=== PATIENT | female | born 1985 | race Caucasian/White ===

== ENCOUNTER 2018-08-28 05:50 | Inpatient (IN) ==
--- NOTE | 2018-08-27 10:32 | History & Physical Report ---
Date of Service August 27, 2018 Patient is 39+ weeks and breech presentation wishes has generally been uncomplicated she did have a low-lying placenta but the location resolved at 32 weeks. Normal second trimester ultrasound normal lab first Assessment & Plan (1) Breech presentation: Reviewed breech presentation. Patient does not wish version. Recommended patient agrees discussed risks including bleeding infection injury to bowel bladder ureter vessels deep vein thrombosis pulmonary embolus full informed consent discussed risks to the fetus as well discussed risks of vaginal plan for low segment transverse section History of Present Illness Primary Care Provider: Bev Pan MD Allergies Allergy/AdvReac Type Severity Reaction Status Date / Time No Known Allergies Allergy Verified 08/25/18 08:05 Home Medications Home Medications Medication Instructions Recorded Confirmed Type 1 dose PO DAILY 08/25/18 08/25/18 History Probiotic 1 cap PO DAILY 08/25/18 08/25/18 History albuterol sulfate 1 puff INHALATION Q6H PRN 08/25/18 08/25/18 History Patient History Medical History Asthma Uses PRN INH 1-2 x month on avg History of strain of back Chiropractor visits monthly Seasonal allergies Surgical History History of appendectomy History of wisdom tooth extraction Social History Preferred Language: Austrian Communication Ability: Effective Wellness Manager Required: No Beliefs That Will Affect Care: None Current Living Situation: Spouse Other Information That Helps Us Care for You: No Feels Safe at Home: Yes Safety Concerns: Feels Safe At This Time Smoking Status: Never smoker Do You Dip or Chew Tobacco: No Second Hand Exposure: No Hx Alcohol Use: Yes Hx Substance Use: No Physical Exam Constitutional: WD/WN, vitals as above Respiratory: normal respiratory effort, lungs clear to auscultation Cardiovascular: RRR, no murmur, no edema Genitourinary: OB Exam Abdomen: + fundal height (38) and + breech OB Exam Monitor Tracing: + external FHT monitor used
--- NOTE | 2018-08-27 10:50 | Anesthesiology Consultation ---
Date of Service August 27, 2018 Assessment & Plan (1) Encounter for pre-operative examination: Chart Review Chart Review: Acceptable Risk for Surgery and Patient seen in Pre Admission Testing Teaching & Discussion Instructed NPO after midnight before surgery, except medications with 15 cc of water. Medication instructions provided according to the PAT guidelines. History Surgery Operation Date: 08/28/18 07:30 Proposed Procedures p Section in LD - J. Goran Taylor MD, FACOG Height/Weight Height: 5 ft 9 in Weight: 90.2 kg Allergies Allergy/AdvReac Type Severity Reaction Status Date / Time No Known Allergies Allergy Verified 08/25/18 08:05 Medications Home Medications Medication Instructions Recorded Confirmed Last Taken 1 dose PO DAILY 08/25/18 08/25/18 Unknown Probiotic 1 cap PO DAILY 08/25/18 08/25/18 Unknown albuterol sulfate 1 puff INHALATION Q6H PRN 08/25/18 08/25/18 Unknown Past Medical History Medical History Asthma Uses PRN INH 1-2 x month on avg History of strain of back Chiropractor visits monthly Seasonal allergies Exercise / Class Metabolic Activity II 4-5 Yardwork/Stairs/Walk up hill Past Family History Family History Uncle Family history of diabetes mellitus Uncle Family history of esophageal cancer Grandmother Family history of diverticulitis of colon Past Surgical History Surgical History History of appendectomy History of wisdom tooth extraction Past Anesthesia History No Hx of Anesthesia Complications and No Family Hx of Anesthesia Complications History of PONV No Hx of PONV and No Hx of Motion Sickness Social History Smoking Status: Never smoker Do You Dip or Chew Tobacco: No Hx Alcohol Use: Yes alcohol intake frequency: holidays/special occasions only Alcohol Intake Frequency Comment: no alcohol while Hx Substance Use: No substance use type: does not use Review of Systems Pt denies any recent chest pain, shortness of breath, palpitations, cough, fever or URI. Physical Exam Vital Signs BP: 94/63 (pt reports this is baseline) P: 97bpm SPO2: 96% RA T: 98.3 R: 16 ENMT Mouth: + dental restorations (one front upper incisor capped); no chipped teeth and no loose teeth Thyromental Distance: > or= 3.5 Finger Breadths (4) Mallampati Class: I Neck normal visual inspection; neck extension not limited Respiratory normal respiratory effort Auscultation: lungs clear to auscultation bilaterally Cardiovascular Rate/Rhythm: regular rate and regular rhythm Heart Sounds: no murmur
--- NOTE | 2018-08-27 11:07 | PAT Medication Instructions ---
Medication Instructions Date of Service August 27, 2018 Home Medications 1 dose PO DAILY Probiotic 1 cap PO DAILY albuterol sulfate 1 puff INHALATION Q6H PRN DO NOT take the morning of surgery 1 dose PO DAILY Probiotic 1 cap PO DAILY Take morning of surgery OTHERWISE NOTHING TO EAT OR DRINK AFTER MIDNIGHT: albuterol sulfate 1 puff INHALATION Q6H PRN (if needed, and bring with you to the hospital) Other Notes If you have any questions please call us at [phone] or [phone] or [phone] or [phone]
[~2018-08-28 05:50] MED LIST: LACTATED RINGER'S 1,000 ML IV SCH
[2018-08-28] MEDS ORDERED: LR 15ML/HR IV SCH (06:00)
[2018-08-28] MEDS ORDERED: CEFAZOLIN 2000MG 2,000 MG/15 ML SYR IV SCH ×2 (06:00)
[2018-08-28] MEDS ORDERED: CITRIC ACID/SODIUM CITRATE 15 ML UDC PO SCH ×2 (06:00)
[2018-08-28] MEDS ORDERED: LACTATED RINGER'S 1,000 ML IV SCH ×3 (06:00→08:45)
[2018-08-28 06:26] LABS: Basophils # (auto) 0.01 K/uL (0-0.2); Basophils % (auto) 0.1 %; Eosinophils # (auto) 0.13 K/uL (0-0.5); Eosinophils % (auto) 1.3 %; Hematocrit (blood only) 36.4 % (37-47); Hemoglobin 12.7 g/dL (12.0-16.0); Immature Granulocytes # (auto) 0.04 K/uL (0.00-0.02); Immature Granulocytes % (auto) 0.4 %; Lymphocytes % (auto) 22.3 %; Mean Corpuscular Volume 89.4 fL (80-100); Mean Platelet Volume 10.4 fL (7.4-10.4); Monocytes # (auto) 1.02 K/uL (0.11-0.59); Monocytes % (auto) 9.9 %; Platelet Count 220 K/uL (130-400); RDW Coefficient of Variation 12.8 % (11.5-14.5); RDW Standard Deviation 41.3 fL (36.4-46.3); Red Blood Count 4.07 M/uL (4.2-5.4)
[2018-08-28 06:34] LABS: Mean Corpuscular Hgb Conc 34.9 g/dL (32-36)
[2018-08-28] MEDS ORDERED: OXYTOCIN 10 UNITS/ML VIAL ONE (06:58)
[2018-08-28] MEDS ORDERED: fentaNYL citrate 100 MCG/2 ML VIAL ONE (06:58)
[2018-08-28] MEDS ORDERED: MoRPHine SULFATE PF 1 MG/ML 10 ML AMP/VIAL ONE (06:58)
--- NOTE | 2018-08-28 07:14 | History & Physical Bridge Note ---
Date of Service August 28, 2018 History & Physical Bridge Note I have examined the patient, reviewed the History & Physical and in the interval since the performance of the History & Physical I have noted the following changes of clinical significance: no changes noted
[2018-08-28] MEDS ORDERED: ONDANSETRON INJ 2 MG/ML 2 ML VIAL IV PRN (08:08)
[2018-08-28] MEDS ORDERED: MEPERIDINE HCL 25 MG/ML CARP IV PRN (08:08)
[2018-08-28] MEDS ORDERED: NALOXONE HCL 0.08 MG in SYRINGE 1.8 ML IV PRN (08:08)
[2018-08-28] MEDS ORDERED: LACTATED RINGER'S 500 ML IV PRN (08:08)
[2018-08-28] MEDS ORDERED: ePHEDrine sulfate 50 MG/ML AMP IV PRN (08:08)
[2018-08-28] MEDS ORDERED: NALOXONE HCL 0.4 MG/1 ML VIAL/CARP IV PRN (08:08)
[2018-08-28] MEDS ORDERED: DiphenhydrAMINE HCL 50 MG/ML VIAL IV PRN (08:08)
[2018-08-28] MEDS ORDERED: NALBUPHINE HCL INJ 10 MG/ML AMP IV PRN (08:08)
[2018-08-28] MEDS ORDERED: MoRPHine SULFATE PF 1 MG/ML 10 ML AMP/VIAL INT SPINAL ONE (08:08)
[2018-08-28] MEDS ORDERED: NALOXONE HCL 1 MG in SODIUM CHLORIDE 0.9% 1000ML 1,000 ML IV PRN (08:08)
[2018-08-28] MEDS ORDERED: SODIUM CHLORIDE 0.9% 1000ML 1,000 ML IV SCH (08:15)
[2018-08-28] MEDS ORDERED: NO NARCOTICS OR SEDATIVES SCH (08:15)
[2018-08-28 08:34] LABS: Base Excess Cord Arterial Bld 5.3 mEq/L (-9-1.8); CO2 Cord Arterial Blood 61 mmHg (39.1-73.5); HCO3 Cord Arterial Blood 33 mmol/L (19.7-28.5); pH Cord Arterial Blood 7.35 (7.1-7.38)
--- NOTE | 2018-08-28 08:35 | Operative Report ---
Post Operative Report Pre & Post Diagnosis Operation Date: 08/28/18 07:30 <No data on this case meets the specified criteria> Breech presentation at term is preop and postop diagnosis Procedure Operation Date: 08/28/18 07:30 <No data on this case meets the specified criteria> Low segment transverse section Surgeon Oleg Taylor MD, FACOG [facility] Estimated Blood Loss 600 Findings Consistent with Post-Op Diagnosis Specimens Placenta cord gases cord blood Description of Procedure Patient given a spinal anesthetic prepped and draped in supine position with a leftward tilt Holloway catheter been placed by nursing IV Ancef had been given prior prophylactic antibiotics skin area was tested with pickups with teeth and found to be adequate Pfannenstiel incision with scalpel dissecting down through subtenons fat through fascia in the midline fascia dissected laterally with the curved Nicolas scissors fascia then released superiorly and inferiorly with the curved Mayos away from the rectus muscles rectus muscle split peritoneal cavity entered bluntly in a superior location. Opening of the peritoneal cavity then expanded to allow exposure bladder retractor placed Metzenbaums used to dissect away the bladder flap bladder retractor repositioned scalpel used to make a low transverse incision and she was done bluntly with a hemostat and then uterine hysterotomy incision expanded with the photocomposition keyboard operator's fingers Baby was jen breech delivered by flexion of the baby's buttocks we then converted the baby's back to anterior gentle traction I was able to release both legs and then both arms were swept towards the chest to allow easy delivery baby's head was delivered with gentle traction no excessive force and no excessive extension live vigorous cord clamped and cut cord gases obtained cord itself appeared somewhat thickened but otherwise normal placenta was removed manually uterus was exteriorized IV Pitocin was started. The uterus was normal it was not bicornuate there was no septum adnexa were normal Hemostasis improved uterus closed in the usual fashion a 2 layer 0 Monocryl closure first layer locked second layer not locked. After this we irrigated and suctioned the pelvis and bladder flap areas uterus placed back in the peritoneal cavity hemostasis was excellent Fascia was closed with 0 Vicryl subcutaneous fat was irrigated and closed with 3-0 Vicryl 4-0 subcuticular Monocryl closure Steri-Strips applied sponge and instrument counts were correct and urine was clear I attest to the content of the Intraoperative Record and any orders documented therein. Any exceptions are noted below.
[2018-08-28] MEDS ORDERED: HYDROCORTISONE ACETATE 25 MG SUPP PR PRN (08:36)
[2018-08-28] MEDS ORDERED: SUPERCREAM 0.870% 15 GM JAR EXT PRN (08:36)
[2018-08-28] MEDS ORDERED: MAGNESIUM HYDROXIDE SUSP 30 ML UDC PO PRN (08:36)
[2018-08-28] MEDS ORDERED: BENZOCAINE 20% AER SPR 82.5 GM CAN EXT PRN (08:36)
[2018-08-28] MEDS ORDERED: SENNA 8.6 MG TAB PO PRN (08:36)
[2018-08-28] MEDS ORDERED: DIPHTHERIA/TETANUS/PERTUSSIS 0.5 ML SYR/VIAL IM ONE (08:36)
[2018-08-28 08:42] LABS: Cord Venous Blood HCO3 25 mmol/L (18.4-26.8); Cord Venous Blood PCO2 44 mmHg (30.4-57.2); Cord Venous Blood PO2 29 mmHg (14.1-43.3); Cord Venous Blood pH 7.38 (7.20-7.44); O2 Saturation Cord Venous Bld 65.1 % (<68)
--- NOTE | 2018-08-28 09:16 | Anesthesiology Progress Note ---
Date of Service August 28, 2018 Anesthesia Post Procedure Vital Signs Vital Signs: Temp Pulse Resp BP Pulse Ox 08/28/18 09:13 74 97 08/28/18 09:10 74 92/58 L 08/28/18 09:08 76 97 08/28/18 09:05 68 96/53 L 08/28/18 09:03 81 97 08/28/18 08:58 91 H 98 08/28/18 08:53 75 98 08/28/18 08:50 98 H 94 08/28/18 08:48 88 96 08/28/18 08:43 82 96 08/28/18 08:39 86 91/55 L 08/28/18 08:38 82 96 08/28/18 07:08 97.9 F 64 18 125/79 08/28/18 06:02 98.2 F 20 Transfer of Care Handoff Completed per policy Notes Mental Status: alert / awake / arousable and participated in evaluation Nausea / Vomiting: adequately controlled Pain: adequately controlled Airway Patency, RR, SpO2: stable & adequate BP & HR: stable & adequate Hydration State: stable & adequate Neuraxial Anesthesia: was administered and sensory block is resolving Anesthetic Complications: no major complications apparent and Pt Satisfied with anesthetic care
[2018-08-28] MEDS: DOCUSATE SODIUM 100 MG CAP PO SCH ×2 (10:22→20:28)
[2018-08-28] MEDS: PRENATAL VITAMIN 1 TAB PO SCH (10:23)
[2018-08-28] MEDS: SIMETHICONE 80 MG CHEW PO SCH ×4 (10:23→20:28)
[2018-08-28] MEDS: OXYTOCIN 20 UNITS in LACTATED RINGER'S 1,000 ML IV SCH ×2 (10:49→18:36)
[2018-08-28] MEDS ORDERED: ALBUTEROL HFA 8 GM INHALER INH PRN (12:26)
[2018-08-28] MEDS: KETOROLAC 30 MG/ML VIAL IV PRN (13:15)
[2018-08-29] MEDS: KETOROLAC 30 MG/ML VIAL IV PRN (00:49)
[2018-08-29] MEDS ORDERED: ONDANSETRON INJ 2 MG/ML 2 ML VIAL IV PRN (02:08)
[2018-08-29] MEDS ORDERED: ZOLPIDEM TARTRATE 5 MG TAB PO PRN (02:08)
[2018-08-29] MEDS ORDERED: PROMETHAZINE HCL 25 MG in SODIUM CHLORIDE 0.9% 50 ML IV PRN (02:08)
[2018-08-29] MEDS ORDERED: DC INTRASPINAL MORPHINE ONE (02:08)
[2018-08-29] MEDS ORDERED: MEPERIDINE HCL 50 MG/ML CARP IV PRN (02:08)
[2018-08-29] MEDS ORDERED: OXYCODONE/ACETAMINOPHEN 5mg/325mg TAB PO PRN (02:08)
[2018-08-29] MEDS ORDERED: DiphenhydrAMINE HCL 50 MG/ML VIAL IV PRN (02:08)
[2018-08-29] MEDS ORDERED: KETOROLAC 30 MG/ML VIAL IV PRN (02:08)
--- NOTE | 2018-08-29 07:32 | Obstetrical Progress Note ---
Date of Service August 29, 2018 section postop day #1 patient doing well pain well controlled tolerating oral diet no excessive bleeding Assessment & Plan (1) Breech presentation: Postop day #1 from encourage ambulation Physical Exam Vital Signs (Past 24 Hours) Last Vital Signs Temp 98.1 F 08/29/18 03:50 Pulse 74 08/29/18 03:50 Resp 18 08/29/18 03:50 BP 93/60 L 08/29/18 03:50 Pulse Ox 98 08/29/18 02:05 Constitutional WD/WN, vitals as above Respiratory normal respiratory effort, lungs clear to auscultation Cardiovascular RRR, no murmur, no edema Genitourinary Uterus firm nontender extremity exam negative incision clean dry and intact
[2018-08-29 07:53] LABS: Basophils # (auto) 0.02 K/uL (0-0.2); Basophils % (auto) 0.2 %; Eosinophils # (auto) 0.07 K/uL (0-0.5); Eosinophils % (auto) 0.6 %; Hematocrit (blood only) 31.7 % (37-47); Hemoglobin 10.8 g/dL (12.0-16.0); Immature Granulocytes # (auto) 0.04 K/uL (0.00-0.02); Immature Granulocytes % (auto) 0.4 %; Lymphocytes # (auto) 1.14 K/uL (1.2-3.4); Lymphocytes % (auto) 10.3 %; Mean Corpuscular Hgb Conc 34.1 g/dL (32-36); Mean Corpuscular Volume 92.7 fL (80-100); Mean Platelet Volume 10.5 fL (7.4-10.4); Monocytes # (auto) 1.02 K/uL (0.11-0.59); Monocytes % (auto) 9.2 %; Neutrophils # (auto) 8.77 K/uL (1.4-6.5); Neutrophils % (auto) 79.3 %; Platelet Count 163 K/uL (130-400); RDW Coefficient of Variation 13.2 % (11.5-14.5); RDW Standard Deviation 43.9 fL (36.4-46.3); Red Blood Count 3.42 M/uL (4.2-5.4); White Blood Count 11.06 K/uL (4.8-10.8)
--- NOTE | 2018-08-29 08:07 | Anesthesiology Progress Note ---
Date of Service August 29, 2018 Anesthesia Post Procedure Vital Signs Vital Signs: Temp Pulse Pulse Pulse Resp BP BP 08/29/18 07:33 36.6 C 76 20 93/62 L 08/29/18 03:50 36.7 C 74 18 93/60 L 08/29/18 02:05 18 08/29/18 01:30 18 08/29/18 00:48 18 08/28/18 23:05 36.8 C 61 18 99/66 L 08/28/18 22:00 18 08/28/18 21:15 18 08/28/18 20:28 18 08/28/18 19:50 36.9 C 76 18 102/66 08/28/18 19:00 18 08/28/18 18:00 18 08/28/18 17:00 18 08/28/18 16:00 36.6 C 87 18 109/70 08/28/18 15:00 18 08/28/18 14:00 18 08/28/18 13:48 81 17 101/62 08/28/18 13:15 18 08/28/18 12:44 87 16 109/70 08/28/18 12:15 18 08/28/18 11:45 78 18 112/76 08/28/18 11:15 37 C 76 18 99/62 L 08/28/18 10:53 83 08/28/18 10:50 75 109/63 08/28/18 10:48 79 08/28/18 10:43 77 08/28/18 10:40 36.7 C 85 18 118/67 08/28/18 10:38 77 08/28/18 10:33 77 08/28/18 10:30 70 108/59 L 08/28/18 10:28 68 08/28/18 10:23 71 08/28/18 10:20 78 102/57 L 08/28/18 10:18 70 08/28/18 10:13 74 08/28/18 10:11 65 92/52 L 08/28/18 10:08 73 18 180/127 H 08/28/18 10:03 79 08/28/18 09:58 72 08/28/18 09:54 71 117/58 L 08/28/18 09:53 71 08/28/18 09:52 88 18 182/123 H 08/28/18 09:48 72 05/17/19 09:43 76 08/28/18 09:40 36.4 C L 18 08/28/18 09:38 76 08/28/18 09:33 91 H 08/28/18 09:32 81 109/74 08/28/18 09:30 18 08/28/18 09:28 82 08/28/18 09:23 69 08/28/18 09:21 54 L 93/55 L 08/28/18 09:20 18 08/28/18 09:18 95 H 08/28/18 09:13 74 08/28/18 09:10 74 92/58 L 08/28/18 09:08 76 08/28/18 09:05 68 96/53 L 08/28/18 09:03 81 08/28/18 09:00 18 08/28/18 08:58 91 H 08/28/18 08:53 75 08/28/18 08:50 98 H 08/28/18 08:48 88 18 08/28/18 08:43 82 08/28/18 08:39 36.4 C L 86 18 91/55 L 08/28/18 08:38 82 Pulse Ox 08/29/18 07:33 08/29/18 03:50 08/29/18 02:05 98 08/29/18 01:30 97 08/29/18 00:48 98 08/28/18 23:05 97 08/28/18 22:00 100 08/28/18 21:15 100 08/28/18 20:28 98 08/28/18 19:50 98 08/28/18 19:00 97 08/28/18 18:00 98 08/28/18 17:00 98 08/28/18 16:00 96 08/28/18 15:00 98 08/28/18 14:00 97 08/28/18 13:48 97 08/28/18 13:15 97 08/28/18 12:44 96 08/28/18 12:15 97 08/28/18 11:45 98 08/28/18 11:15 98 08/28/18 10:53 96 08/28/18 10:50 08/28/18 10:48 97 08/28/18 10:43 98 08/28/18 10:40 08/28/18 10:38 99 08/28/18 10:33 97 08/28/18 10:30 08/28/18 10:28 98 08/28/18 10:23 98 08/28/18 10:20 08/28/18 10:18 98 08/28/18 10:13 97 08/28/18 10:11 08/28/18 10:08 98 08/28/18 10:03 96 08/28/18 09:58 97 08/28/18 09:54 08/28/18 09:53 97 08/28/18 09:52 08/28/18 09:48 97 08/28/18 09:43 96 08/28/18 09:40 08/28/18 09:38 96 08/28/18 09:33 96 08/28/18 09:32 08/28/18 09:30 08/28/18 09:28 96 08/28/18 09:23 97 08/28/18 09:21 08/28/18 09:20 08/28/18 09:18 96 08/28/18 09:13 97 08/28/18 09:10 08/28/18 09:08 97 08/28/18 09:05 08/28/18 09:03 97 08/28/18 09:00 08/28/18 08:58 98 08/28/18 08:53 98 08/28/18 08:50 94 08/28/18 08:48 96 08/28/18 08:43 96 08/28/18 08:39 08/28/18 08:38 96 Pain Intensity Lower Abdomen: Pain Intensity: 2 Transfer of Care Handoff Completed per policy Notes Mental Status: alert / awake / arousable Patient Amnestic to Procedure: Yes Nausea / Vomiting: adequately controlled Pain: adequately controlled Airway Patency, RR, SpO2: stable & adequate BP & HR: stable & adequate Neuraxial Anesthesia: was administered and sensory block is resolving Anesthetic Complications: no major complications apparent Notes: Pt doing well. Has been OOB. Denies having any SANDERS, paresthesia, backache. VSS
[2018-08-29] MEDS: DOCUSATE SODIUM 100 MG CAP PO SCH ×2 (09:14→22:12)
[2018-08-29] MEDS: SACCHAROMYCES BOULARDII 250 MG CAP PO SCH (09:14)
[2018-08-29] MEDS: SIMETHICONE 80 MG CHEW PO SCH ×4 (09:14→22:12)
[2018-08-29] MEDS: IBUPROFEN 600 MG TAB PO PRN ×4 (09:14→22:27)
[2018-08-29] MEDS: PRENATAL VITAMIN 1 TAB PO SCH (09:14)
[2018-08-29] MEDS ORDERED: BISACODYL 5 MG TABEC PO SCH (20:00)
[2018-08-29] MEDS ORDERED: BISACODYL 5 MG TABEC PO ONE (22:24)
[2018-08-30 06:24] LABS: Hematocrit (blood only) 33.1 % (37-47); Hemoglobin 11.3 g/dL (12.0-16.0)
--- NOTE | 2018-08-30 08:14 | Obstetrical Progress Note ---
Date of Service August 30, 2018 Assessment & Plan (1) delivery delivered: Patient doing well. Unsure about d/c today. Wants to see how feeding is going. routine pp care. Subjective Ambulation: ambulating normally Voiding: no voiding problems Passing Gas:: Yes Diet Tolerance:: regular diet Lochia:: Small Feeding Type:: breast feeding Patient struggling with breast feeding. Notes her incision is sore, not taking any narcotics. Physical Exam Vital Signs (Past 24 Hours) Last Vital Signs Temp 98.1 F 08/29/18 23:21 Pulse 72 08/29/18 23:21 Resp 18 08/29/18 23:21 BP 108/71 08/29/18 23:21 Pulse Ox 100 08/29/18 23:21 Constitutional WD/WN, vitals as above Cardiovascular Extremities: no calf tenderness and no edema Gastrointestinal (Abdomen) soft, nd, nt incision--c/d/i, small amount of bruising fundus firm, appropriately tender
[2018-08-30] MEDS ORDERED: BISACODYL 10 MG SUPP PR PRN (08:37)
[2018-08-30] MEDS: PRENATAL VITAMIN 1 TAB PO SCH (09:24)
[2018-08-30] MEDS: DOCUSATE SODIUM 100 MG CAP PO SCH ×2 (09:24→21:28)
[2018-08-30] MEDS: SIMETHICONE 80 MG CHEW PO SCH ×4 (09:24→21:27)
[2018-08-30] MEDS: IBUPROFEN 600 MG TAB PO PRN ×3 (09:24→21:28)
[2018-08-30] MEDS: SACCHAROMYCES BOULARDII 250 MG CAP PO SCH (09:24)
[2018-08-30] MEDS ORDERED: BISACODYL 5 MG TABEC PO ONE (21:16)
--- NOTE | 2018-08-31 07:14 | Obstetrical Progress Note ---
Date of Service <Choco Mcfarland MD - Last Filed: 08/31/18 07:18> August 31, 2018 Assessment & Plan <Choco Mcfarland MD - Last Filed: 08/31/18 07:18> (1) delivery delivered: day 3 s/p for breech presentation at 39Weeks and 5 days Vital Signs Reviewed and WNL Hemoglobin 11.3 Blood type A+, GBS - Rubella Immune Patient doing very well clinically, eating, walking and using restroom, had bowel movement with some mild constipation improved with stool softeners Encouraged ambulation as tolerated, continuing with breast feeding Counselled patient on all discharge instructions and follow up appointment Day #:: 3 Subjective <Choco Mcfarland MD - Last Filed: 08/31/18 07:18> Ambulation: ambulating normally Voiding: no voiding problems Passing Gas:: Yes Diet Tolerance:: regular diet Lochia:: Small Feeding Type:: breast feeding (Having to supplement with formula) Mild pain when moving well controlled with motrin Physical Exam <Choco Mcfarland MD - Last Filed: 08/31/18 07:18> Vital Signs (Past 24 Hours) Last Vital Signs Temp 36.6 C 08/30/18 23:10 Pulse 71 08/30/18 23:10 Resp 16 08/30/18 23:10 BP 108/74 08/30/18 23:10 Pulse Ox 98 08/30/18 23:10 Constitutional well developed, well nourished, cooperative and comfortable Respiratory normal respiratory effort, lungs clear to auscultation Cardiovascular Rate/Rhythm: regular rate and regular rhythm Heart Sounds: no click, no gallop, no murmur and no cardiac rub Extremities: no calf tenderness Genitourinary OB Exam Abdomen: + fundal height (2 cm below umbilicus) Fundus: + firm; not tender <Jessenia Tilley MD, FACOG - Last Filed: 08/31/18 07:44> Co-Signing Physician Notes Resident Physician Supervision Note: I interviewed and examined the patient. Discussed with Dr. Mcfarland and agree with findings and plan as documented in the note. Any exceptions or cla rifications are listed here: Agree. Doing well. Plan d/c. Documented By: Jessenia Tilley MD, FACOG Resident Activity Tracking <Choco Mcfarland MD - Last Filed: 08/31/18 07:18> Resident Involvement: Resident Care Provided Care Provided: Adult Hospital Medicine
[2018-08-31] MEDS: PRENATAL VITAMIN 1 TAB PO SCH (09:06)
[2018-08-31] MEDS: DOCUSATE SODIUM 100 MG CAP PO SCH (09:06)
[2018-08-31] MEDS: SACCHAROMYCES BOULARDII 250 MG CAP PO SCH (09:07)
[2018-08-31] MEDS: SIMETHICONE 80 MG CHEW PO SCH (09:07)
[2018-08-31] MEDS: IBUPROFEN 600 MG TAB PO PRN (09:07)
[2018-08-31 09:57] VITALS: BP 106/66; PULSE 74; TEMP 98.1; O2SAT 100
--- NOTE | 2018-09-03 10:14 | Discharge Summary ---
Date of Service September 03, 2018 Patient had a C/S for breech presentation and met criteria for discharge on POD#3 Ambulating well. Pain well controlled. Min bleeding, no ext pain Admission Exam (Per Admitting) Constitutional WD/WN, vitals as above Respiratory normal respiratory effort, lungs clear to auscultation Cardiovascular RRR, no murmur, no edema Genitourinary Incision clean dry and intact Discharge Data Consultations 08/28/18 05:53 Consult Anesthesiology Stat Procedures Performed Operation Date: 08/28/18 07:30 Actual Procedures p Section in LD(Bilateral) - [facility] ([facility]) Breech presentation:
== END 2018-08-31 13:25 | disposition home or self-care (01) | DRG 788 ==
LOC: 4S1 05:50 → EDSTATUS 07:30 → 4S2 11:10

== ENCOUNTER 2022-08-16 05:38 | Inpatient (IN) ==
--- NOTE | 2022-08-07 14:10 | Anesthesiology Consultation ---
Date of Service August 07, 2022 Assessment & Plan (1) Encounter for pre-operative examination: Chart Review Chart Review: data entry clerk initiated -COVID screening: Per PAT nursing assessment on 08/07/22. No known COVID-19 posi tive contacts or current COVID-19 related symptoms. Travel screen negative. Patient vaccinated for Covid. At surgeon discretion if preop Covid testing being done. D&E 02/02/21= Done under GA with LMA #4, atraumatic placement 08/28/18= Done under SAB at L4-5 with 1 attempt History Surgery Operation Date: 08/16/22 07:30 Proposed Procedures p Section in LD (Delivery of Baby Through Abdominal Incision) - Sharri Pritchett MD, FACOG Height/Weight Height: 5 ft 10 in Weight: 90.083 kg Allergies Allergy/AdvReac Type Severity Reaction Status Date / Time No Known Allergies Allergy Verified 08/05/22 11:43 Medications Home Medications Medication Instructions Recorded Confirmed Last Taken prenat.vits,ken,[id number] 1 tab PO QAM 12/11/20 08/07/22 01/31/21 albuterol sulfate 90 mcg/actuation 1 puff inhalation Q6H PRN 02/21/21 08/07/22 Unknown aerosol inhaler Shortness Of Breath breast pump #1 ea 06/27/22 08/05/22 Unknown Past Medical History Medical History Breech presentation 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 has had no issues in about 1 yr- prn inhaler use History of chicken pox Seasonal allergies Sudden right hearing loss Tinnitus of right ear Past Family History Family History Uncle Family history of diabetes mellitus Uncle Family history of esophageal cancer Grandmother Family history of diverticulitis of colon Other No family history of adverse response to anesthesia Denies family history of Ovarian cancer Breast cancer Colorectal cancer Past Surgical History Surgical History History of appendectomy History of wisdom tooth extraction Hx of dilation and curettage D&E after miscarriage S/P section X 1 S/P LASIK surgery PRK X 2 Social History Smoking Status: Never smoker Do You Dip or Chew Tobacco: No Hx Alcohol Use: No alcohol intake frequency: holidays/special occasions only Hx Substance Use: No substance use type: does not use
--- NOTE | 2022-08-15 12:46 | History & Physical Report ---
Date of Service August 15, 2022 Assessment & Plan (1) Previous delivery affecting , antepartum: Plan IUP at 39 weeks presents for repeat LTCS procedure and risks reviewed with patient and her . all questions answered to their satisfaction. History of Present Illness Primary Care Provider: Bev Pan MD Patient is a 37 yo female EDC 08/20/22 who presents at 39 weeks for repeat LTCS. first LTCS done for breech presentation. this complicated by AMA status. testing has been reassuring. 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 has had no issues in about 1 yr- prn inhaler use History of chicken pox Seasonal allergies Sudden right hearing loss Tinnitus of right ear Surgical History History of appendectomy History of wisdom tooth extraction Hx of dilation and curettage D&E after miscarriage S/P section X 1 S/P LASIK surgery PRK X 2 Family History Uncle Family history of diabetes mellitus Uncle Family history of esophageal cancer Grandmother Family history of diverticulitis of colon Other No family history of adverse response to anesthesia Denies family history of Ovarian cancer Breast cancer Colorectal cancer Social History Smoking Status: Never smoker Second Hand Exposure: No; Do You Dip or Chew Tobacco: No; Hx Alcohol Use: No Hx Substance Use: No Preferred Language: Maldivian Communication Ability: Effective Visual Impairment: No Limitations Hearing Ability: Normal Insurance Instructor Required: No Beliefs That Will Affect Care: None marital status: marital status details: Rey Beltran (36) [phone] Current Living Situation: Family Current Living Situation Comment: lives with spouse, son, dog current occupational status: employed current occupation: Nurse [employer] Feels Safe at Home: Yes Assistive Devices: Contacts and Glasses Review of Systems All systems reviewed & are unremarkable except as noted in HPI & below Physical Exam Constitutional: WD/WN, vitals as above Respiratory: normal respiratory effort, lungs clear to auscultation Cardiovascular: RRR, no murmur, no edema Psychiatric: A+Ox3, euthymic affect Genitourinary: OB Exam Abdomen: + fundal height (term) and + vertex OB Exam Monitor Tracing: + external FHT monitor used, + external uterine monitor used, + category I and + normal FHT variability Coding Level of Care Code None Diagnoses Previous delivery affecting , antepartum O34.219
[2022-08-16] MEDS ORDERED: CITRIC ACID/SODIUM CITRATE 15 ML UDC PO SCH (06:00)
[2022-08-16] MEDS ORDERED: LACTATED RINGER'S 1,000 ML IV SCH ×2 (06:00→09:16)
[2022-08-16] MEDS ORDERED: ceFAZolin 2,000 MG in SYRINGE 0 ML IV SCH (06:00)
[2022-08-16 06:18] LABS: Basophils # (auto) 0.04 K/uL (0-0.2); Basophils % (auto) 0.5 %; Eosinophils # (auto) 0.09 K/uL (0-0.50); Hematocrit (blood only) 37.3 % (37.0-47.0); Hemoglobin 12.9 g/dl (12.0-16.0); Immature Granulocytes # (auto) 0.07 K/uL (0.01-0.20); Immature Granulocytes % (auto) 0.8 %; Lymphocytes # (auto) 1.76 K/uL (1.2-3.4); Lymphocytes % (auto) 20.3 %; Mean Corpuscular Hemoglobin 31.3 pg (25.0-34.0); Mean Corpuscular Hgb Conc 34.6 g/dL (32.0-36.0); Mean Corpuscular Volume 90.5 fL (80.0-100.0); Mean Platelet Volume 10.2 fL (9.4-12.4); Monocytes # (auto) 0.79 K/uL (0.11-0.59); Monocytes % (auto) 9.1 %; Neutrophils % (auto) 68.3 %; Platelet Count 229 K/uL (130-400); RDW Coefficient of Variation 12.7 % (11.5-14.5); RDW Standard Deviation 41.1 fL (36.4-46.3); Red Blood Count 4.12 M/uL (4.20-5.40); White Blood Count 8.65 K/ul (4.8-10.8)
[2022-08-16] MEDS ORDERED: OXYTOCIN 10 UNITS/ML 10ML VIAL ONE (06:57)
[2022-08-16] MEDS ORDERED: METOCLOPRAMIDE HCL INJ 5 MG/ML 2 ML VIAL ONE (06:57)
[2022-08-16] MEDS ORDERED: fentaNYL citrate PF 100 MCG/2 ML VIAL ONE (06:57)
[2022-08-16] MEDS ORDERED: ONDANSETRON INJ 2 MG/ML 2 ML VIAL ONE (06:57)
[2022-08-16] MEDS ORDERED: MoRPHine SULFATE PF 1 MG/ML 10 ML AMP/VIAL ONE (06:57)
[2022-08-16] MEDS ORDERED: diphenhydrAMINE Capsule 25 MG CAP PO PRN (07:05)
[2022-08-16] MEDS ORDERED: NALOXONE HCL 1 MG in SODIUM CHLORIDE 0.9% 1000ML 1,000 ML IV PRN (07:05)
[2022-08-16] MEDS ORDERED: MoRPHine SULFATE 2 MG/ML CARP IV PRN (07:05)
[2022-08-16] MEDS ORDERED: ONDANSETRON INJ 2 MG/ML 2 ML VIAL IV PRN (07:05)
[2022-08-16] MEDS ORDERED: NALOXONE HCL 0.08 MG in SYRINGE 1.8 ML IV PRN (07:05)
[2022-08-16] MEDS ORDERED: LACTATED RINGER'S 500 ML IV PRN (07:05)
[2022-08-16] MEDS ORDERED: NALBUPHINE HCL INJ 10 MG/ML AMP IV PRN (07:05)
[2022-08-16] MEDS ORDERED: NALOXONE HCL 0.4 MG/1 ML VIAL/CARP IV PRN (07:05)
[2022-08-16] MEDS ORDERED: diphenhydrAMINE 50 MG/ML VIAL IV PRN (07:05)
[2022-08-16] MEDS ORDERED: KETOROLAC 30 MG/ML VIAL IV PRN (07:05)
[2022-08-16] MEDS ORDERED: ePHEDrine sulfate 50 MG/ML AMP IV PRN (07:05)
[2022-08-16] MEDS ORDERED: METOCLOPRAMIDE HCL 20 MG in SODIUM CHLORIDE 0.9% 50 ML IV PRN (07:05)
[2022-08-16] MEDS ORDERED: NO NARCOTICS OR SEDATIVES SCH (07:15)
[2022-08-16] MEDS ORDERED: DC INTRASPINAL MORPHINE SCH (07:15)
[2022-08-16] MEDS ORDERED: SODIUM CHLORIDE 0.9% 1000ML 1,000 ML IV SCH (07:15)
--- NOTE | 2022-08-16 07:28 | History & Physical Bridge Note ---
Date of Service August 16, 2022 History & Physical Bridge Note I have examined the patient, reviewed the History & Physical and in the interval since the performance of the History & Physical I have noted the following changes of clinical significance: no changes noted
[2022-08-16] MEDS ORDERED: MoRPHine SULFATE PF 1 MG/ML 10 ML AMP/VIAL INT SPINAL ONE (07:30)
[2022-08-16] MEDS ORDERED: ePHEDrine sulfate 50 MG/ML SYR ONE (08:21)
--- NOTE | 2022-08-16 09:04 | Anesthesiology Progress Note ---
Date of Service August 16, 2022 Anesthesia Post Procedure Vital Signs Vital Signs: Temp Pulse Resp BP Pulse Ox 08/16/22 05:50 36.7 C 95 H 18 113/59 L 08/16/22 09:02 100 H 97 08/16/22 09:00 69 106/58 L 08/16/22 08:57 96 H 99 08/16/22 08:52 97 H 99 08/16/22 08:50 107 H 100/56 L 08/16/22 08:47 99 08/16/22 08:47 99 H 08/16/22 08:47 96 H 103/52 L 85 L 08/16/22 05:47 36.7 C 95 H 18 113/59 L Transfer of Care Handoff Completed per policy Notes Mental Status: alert / awake / arousable Patient Amnestic to Procedure: Yes Nausea / Vomiting: adequately controlled Pain: adequately controlled Airway Patency, RR, SpO2: stable & adequate BP & HR: stable & adequate Hydration State: stable & adequate Neuraxial Anesthesia: was administered and sensory block is resolving Anesthetic Complications: no major complications apparent and Pt Satisfied with anesthetic care
[2022-08-16] MEDS ORDERED: SENNA 8.6 MG TAB PO PRN (09:16)
[2022-08-16] MEDS ORDERED: ALBUTEROL HFA 8 GM INHALER INH PRN (09:16)
[2022-08-16] MEDS ORDERED: MAGNESIUM HYDROXIDE SUSP 30 ML UDC PO PRN (09:16)
[2022-08-16] MEDS ORDERED: DIPHTHERIA/TETANUS/PERTUSSIS 0.5mL SYR/VIAL (Age 7+yrs) IM ONE (09:16)
[2022-08-16] MEDS ORDERED: PROMETHAZINE HCL 25 MG in SODIUM CHLORIDE 0.9% 50 ML IV PRN (09:16)
[2022-08-16] MEDS ORDERED: HYDROCORTISONE ACETATE 25 MG SUPP PR PRN (09:16)
[2022-08-16] MEDS ORDERED: BENZOCAINE 20% AER SPR 82.5 GM CAN EXT PRN (09:16)
--- NOTE | 2022-08-16 09:21 | Post Operative Brief Note ---
PG Immediate Post Op with CF Date of Surgery August 16, 2022 Pre & Post Diagnosis Operation Date: 08/16/22 07:30 Pre-Op Diagnosis: 1. IUP at 39 Weeks 2. Prior Section 3. Requesting Repeat Post-Op Diagnosis: Same I identified the patient and participated in the time-out.: Yes Procedure Operation Date: 08/16/22 07:30 Actual Procedures p Section in LD; Repeat Lower Uterine Transverse Section for the of a live girl 08(Bilateral) - Sharri Pritchett MD, FACOG Surgeon Sharri Pritchett MD, FACOG Service Bar Cashier Marilee Wolf MD & January Gr DO Estimated Blood Loss 500 Findings Consistent with Post-Op Diagnosis normal gravid uterus consistent with term in size. bilateral ovaries and fallopian tubes are grossly normal Specimens Specimen Description: 1. Placenta: Hold 2. Cord Blood Obtained Drains Holloway Catheter (Holloway catheter inserted without difficulty. Patent and draining clear yellow urine. ) Anesthesia Type Spinal Complications none Disposition Accompanied Patient To Recovery: Yes Disposition: L&D
--- NOTE | 2022-08-16 09:34 | Operative Report ---
PG Post Operative Report Pre & Post Diagnosis Operation Date: 08/16/22 07:30 Pre-Op Diagnosis: 1. IUP at 39 Weeks 2. Prior Section 3. Requesting Repeat Post-Op Diagnosis: Same I identified the patient and participated in the time-out.: Yes Procedure Operation Date: 08/16/22 07:30 Actual Procedures p Section in LD; Repeat Lower Uterine Transverse Section for the of a live girl infant 805(Bilateral) - Sharri Pritchett MD, FACOG Surgeon Sharri Pritchett MD, FACOG Clean Rice Broker Marilee Wolf MD & January Gr DO Estimated Blood Loss 500 Findings Consistent with Post-Op Diagnosis Specimens placenta to hold Drains Holloway to straight drainage- clear urine at end of the case Anesthesia Type Spinal Complications none Disposition Accompanied Patient To Recovery: Yes Disposition: L&D Indications Patient is a 37-year-old 3 para 1-0-1-1 female EDC 08/20/2022 presents for repeat section at 39 weeks. Her prior section was done because of breech presentation. has been complicated by AMA status & testing was reassuring. Description of Procedure After the patient received adequate subarachnoid block she was prepped and draped in usual sterile fashion. A scalpel was used to remove her prior scar. T he incision was then carried to the fascia with the same scalpel. The fascial incision was then extended transversely with Nicolas scissors. The edges were grasped with Gordy clamps and the underlying rectus muscles bluntly sharply dissected off of the overlying fascia. The peritoneum was entered bluntly. The bladder was then taken down off the anterior surface of the uterus and placed behind the bladder blade. The lower uterine incision was made with a scalpel and extended transversely. Membranes were ruptured for small amount of clear fluid. The female was delivered from the vertex presentation with moderate fundal pressure. After the head was delivered the rest the delivered easily. The was crying and moving all 4 limbs. Cord was clamped and cut and the infant was handed off to Dr. Eason who was in attendance as environmental sustainability manager. Placenta was then manually extracted, and the uterus exteriorized and covered with a clean lap sponge. Dilute Pitocin and fundal massage were used for controlling bleeding. The uterine cavity was explored and found to be free of any retained placental tissue or membranes. The uterus was then closed in 2 layers in a running locking imbricating fashion with 0 Monocryl. Hemostasis was noted to be excellent. The posterior cul-de-sac was suctioned for small amount of blood and fluid. The uterine incision was examined once more and continue to have excellent hemostasis. The uterus was placed back inside the abdominal cavity and the existing incision was examined once more. It continued to have excellent he mostasis. The rectus muscles were then brought together in the midline with individual stitches of 0 Monocryl. The fascia was closed in a running fashion with 0 Vicryl. After irrigating the adipose layer, the skin edges were reapproximated using a subcuticular stitch of 4-0 Vicryl. Patient tolerated the procedure well and was stable upon arrival back in labor and delivery. I attest to the content of the Intraoperative Record and any orders documented therein. Any exceptions are noted below. OB Procedure Charges 95669
[2022-08-16] MEDS: OXYTOCIN 20 UNITS in LACTATED RINGER'S 1,000 ML IV SCH ×2 (09:46→17:19)
[2022-08-16] MEDS: SIMETHICONE 80 MG CHEW PO SCH ×3 (13:48→20:42)
[2022-08-16] MEDS: DOCUSATE SODIUM 100 MG CAP PO SCH (20:42)
[2022-08-17] MEDS ORDERED: diphenhydrAMINE 50 MG/ML VIAL IV PRN (01:06)
[2022-08-17] MEDS ORDERED: diphenhydrAMINE Capsule 25 MG CAP PO PRN (01:06)
[2022-08-17] MEDS ORDERED: KETOROLAC 30 MG/ML VIAL IV PRN (01:06)
[2022-08-17] MEDS ORDERED: ONDANSETRON INJ 2 MG/ML 2 ML VIAL IV PRN (01:06)
[2022-08-17] MEDS ORDERED: oxyCODONE/ACETAMINOPHEN 5mg/325mg TAB PO PRN (01:06)
[2022-08-17] MEDS ORDERED: ZOLPIDEM TARTRATE 5 MG TAB PO PRN (01:06)
[2022-08-17] MEDS: IBUPROFEN 600 MG TAB PO PRN ×2 (03:37→20:33)
[2022-08-17] MEDS: ACETAMINOPHEN 325 MG TAB PO PRN ×2 (06:23→16:20)
[2022-08-17 06:45] LABS: Basophils # (auto) 0.02 K/uL (0-0.2); Basophils % (auto) 0.2 %; Eosinophils # (auto) 0.06 K/uL (0-0.50); Eosinophils % (auto) 0.7 %; Hematocrit (blood only) 31.5 % (37.0-47.0); Hemoglobin 10.8 g/dl (12.0-16.0); Immature Granulocytes # (auto) 0.03 K/uL (0.01-0.20); Immature Granulocytes % (auto) 0.4 %; Lymphocytes # (auto) 1.06 K/uL (1.2-3.4); Lymphocytes % (auto) 13.1 %; Mean Corpuscular Hemoglobin 31.5 pg (25.0-34.0); Mean Corpuscular Hgb Conc 34.3 g/dL (32.0-36.0); Mean Corpuscular Volume 91.8 fL (80.0-100.0); Mean Platelet Volume 10.1 fL (9.4-12.4); Monocytes # (auto) 0.73 K/uL (0.11-0.59); Neutrophils # (auto) 6.17 K/uL (1.40-6.50); Neutrophils % (auto) 76.6 %; Platelet Count 177 K/uL (130-400); RDW Coefficient of Variation 12.8 % (11.5-14.5); RDW Standard Deviation 42.2 fL (36.4-46.3); Red Blood Count 3.43 M/uL (4.20-5.40); White Blood Count 8.07 K/ul (4.8-10.8)
--- NOTE | 2022-08-17 06:59 | Obstetrical Progress Note ---
Date of Service August 17, 2022 Assessment & Plan (1) Encounter for pre-operative examination: (2) Elderly multigravida: (3) Previous delivery affecting , antepartum: Plan Jihan is a 37 y/o female who is POD #1 following repeat LTCS delivery at 39w3d. -Meeting all milestones -Vital signs reviewed and WNL, hemoglobin at 10.8 this morning -Follow up in 6 weeks for appointment -Continue routine care Admission and Anticipated Discharge Date Admission Date: August 16, 2022 Supervising Physician Co-Signing Physician Notes Resident Physician Supervision Note: I was present with [Galindo] during the history and exam. I discussed the case with the resident and agree with the findings and plan as documented in the note. Any exceptions or clarifications are listed here: [None] Documented By: Oleg Taylor MD, FACOG Subjective Jihan is a 37 y/o female who is POD #1 following repeat LTCS delivery at 39w3d. She reports feeling well overall this morning. Notes abdominal cramping/pain at surgical site which increases with ambulation. Voiding without issue since removal of langston catheter. Tolerating clears and some crackers- will progress diet today. Able to ambulate some. Endorses passing gas. Does note some left sided calf pain this morning. Review of Systems Constitutional: no fever, no chills and no sweats Respiratory: no cough, no dyspnea and no wheezing Cardiovascular: no chest pain, no palpitations and no calf pain Genitourinary: no dysuria Neurologic: no headache(s) Physical Exam Constitutional: WD/WN, vitals as above no acute distress Respiratory: no respiratory distress Auscultation: lungs clear to auscultation bilaterally; no rales, no rhonchi and no wheezes Cardiovascular: RRR, no murmur, no edema Extremities: no edema Negative Mildred's sign bilaterally. Gastrointestinal (Abdomen): Inspection/Auscultation: normal bowel sounds Genitourinary: Uterine fundus firm, palpable below the umbilicus. incision site clean and healing appropriately. Results & Data Vital Signs (Past 12 Hours) Vital Signs Temp Pulse Resp BP Pulse Ox O2 Del Method 08/17/22 03:45 36.5 C 65 20 98/65 L 99 Room Air 08/17/22 01:00 20 97 08/16/22 23:00 22 97 08/17/22 00:00 20 97 08/16/22 23:17 36.9 C 77 18 85/64 L 97 Room Air 08/16/22 22:00 20 97 08/16/22 20:59 20 98 08/16/22 20:00 20 98 08/16/22 19:00 20 97 08/16/22 19:51 20 99 08/16/22 19:51 Room Air 08/16/22 19:26 36.9 C 97 H 18 93/65 L 99 Room Air Resident Activity Tracking Resident Involvement: Resident Care Provided Care Provided: OB Delivery
[2022-08-17] MEDS: FERROUS SULFATE 325 MG TAB PO SCH (08:25)
[2022-08-17] MEDS: PRENATAL VITAMIN 1 TAB PO SCH (08:25)
[2022-08-17] MEDS: SIMETHICONE 80 MG CHEW PO SCH ×4 (08:25→20:31)
[2022-08-17] MEDS: DOCUSATE SODIUM 100 MG CAP PO SCH ×2 (08:25→20:31)
[2022-08-17] MEDS ORDERED: bisacodyL 5 MG TABEC PO SCH (20:00)
[2022-08-18 06:21] LABS: Hematocrit (blood only) 33.3 % (37.0-47.0); Hemoglobin 11.1 g/dl (12.0-16.0)
--- NOTE | 2022-08-18 07:23 | Obstetrical Progress Note ---
Date of Service August 18, 2022 Assessment & Plan (1) Encounter for care and examination after delivery: satisfactory exam unsure about discharge today given 's recent GI symptoms Subjective Ambulation: ambulating normally Voiding: no voiding problems Passing Gas:: Yes Diet Tolerance:: regular diet Lochia:: Small Feeding Type:: bottle feeding pain well controlled with alternating tylenol and motrin went home last night with GI symptoms Review of Systems All systems reviewed & are unremarkable except as noted in HPI & below Physical Exam Constitutional WD/WN, vitals as above Psychiatric A+Ox3, euthymic affect Genitourinary OB Exam Abdomen: + fundal height Fundus: + firm and + relation to umbilicus (2 below ) incision intact with ecchymosis around incision- no cellulitis or induration Results & Data Vital Signs (Past 12 Hours) Vital Signs Temp Pulse Resp BP Pulse Ox O2 Del Method 08/17/22 23:06 98.4 F 76 18 107/71 98 Room Air 08/17/22 20:40 98.6 F 80 16 95/60 L Room Air
[2022-08-18] MEDS ORDERED: bisacodyL 10 MG SUPP PR PRN (08:32)
[2022-08-18] MEDS: PRENATAL VITAMIN 1 TAB PO SCH (09:27)
[2022-08-18] MEDS: IBUPROFEN 600 MG TAB PO PRN ×2 (09:27→20:15)
[2022-08-18] MEDS: SIMETHICONE 80 MG CHEW PO SCH ×4 (09:27→20:15)
[2022-08-18] MEDS: DOCUSATE SODIUM 100 MG CAP PO SCH ×2 (09:27→20:15)
[2022-08-18] MEDS: FERROUS SULFATE 325 MG TAB PO SCH (09:29)
[2022-08-18] MEDS: ACETAMINOPHEN 325 MG TAB PO PRN ×2 (13:17→23:02)
[2022-08-19] MEDS: IBUPROFEN 600 MG TAB PO PRN ×2 (04:48→09:33)
--- NOTE | 2022-08-19 06:40 | Obstetrical Progress Note ---
Date of Service August 19, 2022 Assessment & Plan (1) Encounter for pre-operative examination: (2) Elderly multigravida: (3) Previous delivery affecting , antepartum: Plan Jihan is a 37 y/o female who is POD #3 following repeat LTCS delivery at 39w3d. -Meeting all milestones -Vital signs reviewed and WNL -Follow up in 6 weeks for appointment -Continue routine care -Plan for d/c today Admission and Anticipated Discharge Date Admission Date: August 16, 2022 Supervising Physician Co-Signing Physician Notes Resident Physician Supervision Note: I interviewed and examined the patient. Discussed with Dr. Gr and agree with findings and plan as documented in the note. Any exceptions or clarifications are listed here: [None] Documented By: Sharri Pritchett MD, FACOG Subjective Jihan is a 37 y/o female who is POD #3 following repeat LTCS delivery at 39w3d. She reports feeling well overall this morning. Notes abdominal cramping/pain at surgical site which increases with ambulation, but has been taking mainly ibuprofen/tylenol. Voiding without issue. Tolerating diet and able to ambulate some. Endorses passing gas and has had a bowel movement in the past day. Currently , hoping to work with fashion consultant sales today prior to discharge. Review of Systems Constitutional: no fever, no chills and no sweats Respiratory: no cough, no dyspnea and no wheezing Cardiovascular: no chest pain, no palpitations and no calf pain Genitourinary: no dysuria Neurologic: no headache(s) Physical Exam Constitutional: WD/WN, vitals as above no acute distress Respiratory: no respiratory distress Auscultation: lungs clear to auscultation bilaterally; no rales, no rhonchi and no wheezes Cardiovascular: RRR, no murmur, no edema Extremities: no calf tenderness and no edema Gastrointestinal (Abdomen): Inspection/Auscultation: normal bowel sounds Skin: no rashes, warm and dry Genitourinary: Surgical incision site clean and healing appropriately. Some ecchymosis around incision. Uterine fundus firm, palpable below umbilicus. Results & Data Vital Signs (Past 12 Hours) Vital Signs Temp Pulse Resp BP Pulse Ox O2 Del Method 08/18/22 23:00 37.0 C 74 18 109/71 98 Room Air 08/18/22 20:00 36.6 C 77 18 98/62 L 98 Room Air Resident Activity Tracking Resident Involvement: Resident Care Provided Care Provided: OB Delivery
[2022-08-19] MEDS: DOCUSATE SODIUM 100 MG CAP PO SCH (09:32)
[2022-08-19] MEDS: SIMETHICONE 80 MG CHEW PO SCH (09:32)
[2022-08-19] MEDS: PRENATAL VITAMIN 1 TAB PO SCH (09:33)
[2022-08-19] MEDS: ACETAMINOPHEN 325 MG TAB PO PRN (09:33)
[2022-08-19] MEDS: FERROUS SULFATE 325 MG TAB PO SCH (09:36)
--- NOTE | 2022-08-22 13:09 | Discharge Summary (DS) ---
DATE OF ADMISSION: 08/16/2022. DATE OF DISCHARGE: 08/19/2022. PRINCIPAL DIAGNOSES: Intrauterine at 39 weeks with prior section, requesting repe at section. POSTOPERATIVE DIAGNOSES. Intrauterine at 39 weeks with prior section, requesting repeat section. Delivery of a viable female . PRINCIPAL PROCEDURE: Repeat low transverse section. HISTORY: The patient is a 37-year-old 5, para 1-0-3-1, female, who presents at 39 weeks for repeat section. Prior section was done because of breech presentation. The proced ure was done without any complications. She had an uncomplicated postoperative course, remained afeb rile throughout her hospital stay. She did have some ecchymosis surrounding her incision, but no damien dence of cellulitis at the surgical site. She was eating regular diet, ambulating and voiding withou t difficulty on her first postop day. Pain was well controlled with p.o. ibuprofen and Tylenol. Hem oglobin on admission was 12.9, hematocrit of 37.3. First postop day, hemoglobin 10.8, hematocrit 31. 5. Second postop day, hemoglobin 11.1, hematocrit of 33.3. The patient was sent home in good condit ion with instructions to call for increased redness, drainage, pain in her incision, heavy vaginal bl eeding, burning with urination, increased calf tenderness or any other concerns. She is to be seen i n the office in 6 weeks for a followup postop visit. Job ID: [id number]
== END 2022-08-19 12:50 | disposition home or self-care (01) | DRG 788 ==
LOC: 4S1 05:38 → EDSTATUS 09:00 → 4E2 11:32